=== PATIENT | female | born 1955 | race African-American/Black ===

== ENCOUNTER → 2016-10-13 | Outpatient (CLI) | payer OTHER, BC ==
[~2016-10-13] MED LIST: ACETAMINOPHEN325 MG PO; ASPIR 8181 MG PO; COLACE100 MG PO; COREG6.25 MG PO; FLEXERIL PO; MULTIVITAMINS1 EAC7 PO; PROAIR HFA8.5 GM INH; RENVELA800 MG PO; SENSIPAR 30 MG30 M1 PO; TESSALON PERLE100 MG PO; ULTRAM 50MG TAB50 MG PO; XANAX 0.25 MG0.25 MG PO; ZPAK PO
--- NOTE | ~2016-10-13 | 2DMMODE ---
[facility] [place] [employer] [place] [address] 2 D/M-MODE ECHOCARDIOGRAM Name: SHARMIN FRIEDMANN Room #: REG [facility]#: [id number] Admission: 10/13/16 Attend Phys: Ziyad Harrell MD Discharge: Date of : 53 Date of Service: 10/13/16 1102 Report #: [id number] THIS REPORT FOR: //name// APPROVED REPORT Study performed: 10/13/2016 09:49:59 EXAM: Comprehensive 2D, Doppler, and color-flow Echocardiogram Patient Location: Out-Patient Status: routine Other Information Study Quality: Adequate Indications Cardiomyopathy 2D Dimensions RVDd: 34.74 mm LVEF(%): 34.61 (>50%) IVSd: 15.29 (7-11mm) LVOT Diam: 21.66 (18-24mm) LVDd: 42.59 mm PWd: 15.27 (7-11mm) Ascending Ao: 31.83 (22-36mm) LVDs: 35.63 (25-40mm) Aortic Root: 33.27 mm Tompkins's LVEF: 34.61 % Volumes Left Atrial Volume (Systole) Single Plane 4CH: 42.66 mL Single Plane 2CH: 48.84 mL LA ESV Index: 23.00 mL/m2 Aortic Valve AoV Peak Aditya.: 1.40 m/s AO Peak Gr.: 7.82 mmHg LVOT Max P.31 mmHg LVOT Max V: 0.91 m/s CIERA Vmax: 2.40 cm2 Mitral Valve E/A Ratio: 0.3 MV Decel. Time: 232.54 ms MV E Max Aditya.: 0.33 m/s MV A Aditya.: 1.24 m/s MV PHT: 67.44 ms [facility] [address] [place] [address] 2 D/M-MODE ECHOCARDIOGRAM Name: FLIP FRIEDMANLYN Room #: REG [facility]#: [id number] Admission: 10/13/16 Attend Phys: Ziyad Harrell MD Discharge: Date of : 53 Date of Service: 10/13/16 1102 Report #: [id number] Pulmonary Valve PV Peak Aditya.: 0.95 m/s PV Peak Gr.: 3.62 mmHg Pulmonary Vein P Vein S: 0.80 m/s P Vein D: 0.61 m/s P Vein S/D Ratio: 1.31 Tricuspid Valve TR Peak Aditya.: 2.85 m/s RAP Estimate: 5.00 mmHg TR Peak Gr.: 32.40 mmHg PA Pressure: 37.00 mmHg Left Ventricle The left ventricle is normal size. Moderate concentric left ventricular hypertrophy. Left ventricular systolic function is mild to moderately decreased. LVEF is 40-45%. Grade I - abnormal relaxation pattern. Right Ventricle The right ventricle is normal size. The right ventricular systolic function is normal. Atria The left atrium size is normal. The atrial septum is hyperdynamic. The right atrium size is normal. Aortic Valve Aortic valve is mildly calcified. No aortic regurgitation is present. There is no aortic valvular stenosis. Mitral Valve The mitral valve is normal in structure. Mild to moderate mitral regurgitation. Tricuspid Valve The tricuspid valve is normal in structure. There is mild tricuspid regurgitation. The right atrial pressure is estimated at 5 mmHg. There is mild pulmonary hypertension with an estimated PAP of 37mmHg. Pulmonic Valve The pulmonary valve is normal in structure. Trace pulmonic regurgitation. Great Vessels [facility] [address] [place] [address] 2 D/M-MODE ECHOCARDIOGRAM Name: MYRNA FRIEDMAN Room #: REG [facility]#: [id number] Admission: 10/13/16 Attend Phys: Ziyad Harrell MD Discharge: Date of : 53 Date of Service: 10/13/16 1102 Report #: [id number] The aortic root is normal in size. The ascending aorta is normal in size. IVC is normal in size and collapses >50% with inspiration. Pericardium There is no pericardial effusion. <Conclusion> The left ventricle is normal size. Moderate concentric left ventricular hypertrophy. Left ventricular systolic function is mild to moderately decreased. Grade I - abnormal relaxation pattern. The right ventricle is normal size. The left atrium size is normal. Aortic valve is mildly calcified. There is no aortic valvular stenosis. Mild to moderate mitral regurgitation. There is mild tricuspid regurgitation. The right atrial pressure is estimated at 5 mmHg. There is mild pulmonary hypertension with an estimated PAP of 37mmHg. <ELECTRONICALLY SIGNED> By: Ziyad Harrell MD 10/13/16 1102 1102 1102 Ziyad Harrell MD /INF
== END ==
LOC: CV 07:00
DX: I42.9 Cardiomyopathy, unspecified (principal)

== ENCOUNTER → 2018-02-01 | Outpatient (CLI) | payer OTHER, BC ==
--- NOTE | ~2018-02-01 | 2DMMODE ---
[facility] [place] [address] 2 D/M-MODE ECHOCARDIOGRAM Name: MYRNA FRIEDMAN Room #: REG CL [facility]#: [id number] Admission: 02/01/18 Attend Phys: Ziyad Harrell MD Discharge: Date of : 53 Date of Service: 02/01/18 1002 Report #: [id number] THIS REPORT FOR: //name// APPROVED REPORT Study performed: 02/01/2018 08:48:01 EXAM: Comprehensive 2D, Doppler, and color-flow Echocardiogram Patient Location: Out-Patient Status: routine BSA: 2.01 HR: 77 bpm BP: 107/63 mmHg Rhythm: NSR/Irregular Other Information Study Quality: Good Indications Non ischemic cardiomyopathy. Hx: HTN, DM, ESRD 2D Dimensions RVDd: 34.85 mm IVSd: 12.48 (7-11mm) LVOT Diam: 22.18 (18-24mm) LVDd: 52.93 mm PWd: 11.66 (7-11mm) Ascending Ao: 34.40 (22-36mm) LVDs: 43.32 (25-40mm) Aortic Root: 32.32 mm Volumes Left Atrial Volume (Systole) Single Plane 4CH: 73.36 mL Single Plane 2CH: 77.57 mL LA ESV Index: 40.00 mL/m2 Aortic Valve AoV Peak Aditya.: 1.38 m/s AO Peak Gr.: 7.58 mmHg LVOT Max P.25 mmHg LVOT Max V: 0.90 m/s CIERA Vmax: 2.53 cm2 Mitral Valve E/A Ratio: 0.8 MV Decel. Time: 240.29 ms MV E Max Aditya.: 0.62 m/s [facility] [address] [place] [address] 2 D/M-MODE ECHOCARDIOGRAM Name: IDALIAMYRNACHELY DANGELO Room #: REG [facility]#: [id number] Admission: 02/01/18 Attend Phys: Ziyad Harrell MD Discharge: Date of : 53 Date of Service: 02/01/18 1002 Report #: [id number] MV A Aditya.: 0.79 m/s MV PHT: 69.68 ms IVRT: 110.73 ms Pulmonary Valve PV Peak Aditya.: 1.15 m/s PV Peak Gr.: 5.32 mmHg Pulmonary Vein P Vein S: 0.64 m/s P Vein D: 0.45 m/s P Vein S/D Ratio: 1.42 Tricuspid Valve TR Peak Aditya.: 2.94 m/s RAP Estimate: 5.00 mmHg TR Peak Gr.: 34.46 mmHg PA Pressure: 40.00 mmHg Left Ventricle The left ventricle is normal size. Moderate concentric left ventricular hypertrophy. Left ventricular systolic function is mild to moderately decreased. LVEF is 40-45%. Mild diastolic dysfunction is present (impaired relaxation pattern). Right Ventricle The right ventricle is normal size. The right ventricular systolic function is normal. Atria Left atrium is mildly dilated. The right atrium size is normal. Aortic Valve Aortic valve is mildly calcified. Trace aortic regurgitation. There is no aortic valvular stenosis. Mitral Valve The mitral valve is normal in structure. Moderate mitral regurgitation. Tricuspid Valve The tricuspid valve is normal in structure. Mild tricuspid regurgitation. Estimated PAP is 40mmHg. Pulmonic Valve The pulmonary valve is normal in structure. Trace pulmonic regurgitation. [facility] [address] [address] 2 D/M-MODE ECHOCARDIOGRAM Name: IDALIAMYRNACHELY DANGELO Room #: REG CL [facility]#: [id number] Admission: 02/01/18 Attend Phys: Ziyad Harrell MD Discharge: Date of : 53 Date of Service: 02/01/18 1002 Report #: [id number] Great Vessels The aortic root is normal in size. The ascending aorta is normal in size. IVC is normal in size and collapses >50% with inspiration. Pericardium There is no pericardial effusion. <Conclusion> The left ventricle is normal size. Moderate concentric left ventricular hypertrophy. Left ventricular systolic function is mild to moderately decreased. LVEF is 40-45%. Mild diastolic dysfunction is present (impaired relaxation pattern). The right ventricle is normal size. Left atrium is mildly dilated. Trace aortic regurgitation. Moderate mitral regurgitation. Mild tricuspid regurgitation. Estimated PAP is 40mmHg. <ELECTRONICALLY SIGNED> By: Ziyad Harrell MD 02/01/18 1002 1002 1002 Ziyad Harrell MD /INF
== END ==
LOC: CV 08:11
DX: I08.1 Rheumatic disorders of both mitral and tricuspid valves (principal); I42.9 Cardiomyopathy, unspecified; I12.0 Hypertensive chronic kidney disease with stage 5 chronic kidney disease or end stage renal disease; E11.22 Type 2 diabetes mellitus with diabetic chronic kidney disease; N18.6 End stage renal disease

== ENCOUNTER 2018-12-21 13:54 | Inpatient (IN) | payer OTHER, BC ==
[~2018-12-21] VITALS: Ht 162.6 cm; Wt 81.7 kg
[2018-12-21 13:58] VITALS: BP 151/78
[2018-12-21] MEDS ORDERED: HYDRALAZINE 2525 MG PO (14:38)
[2018-12-21] MEDS ORDERED: MELATONIN5 M1 PO (14:38)
[2018-12-21] MEDS ORDERED: ALEVE220 MG PO (14:38)
[2018-12-21] MEDS ORDERED: B COMPLEX-FOLI1 EACH PO (14:40)
[2018-12-21 15:03] LABS: ABSOLUTE NEUTROPHILS 4.6 thou/uL (1.4-8.2); BASOPHILS 0.6 % (0.0-2.0); EOSINOPHILS 1.8 % (0.0-3.0); HEMATOCRIT 35.7 % (37.0-47.0); HEMOGLOBIN 11.6 gm/dL (12.0-15.0); LYMPHOCYTES 13.2 % (24.0-44.0); MCH 29.2 pg (26.0-34.0); MCHC 32.5 g/dL (28.0-37.0); MCV 89.9 fL (80.0-100.0); MONOCYTES 9.2 % (1.0-8.0); POLYS 75.2 % (36.0-66.0); RBC 3.97 mil/uL (4.20-5.00); RDW 17.3 % (10.5-14.5); WBC 6.2 thou/uL (4.0-11.0)
[2018-12-21 15:18] LABS: APTT 32.7 Seconds (24.5-32.8); CALCIUM 9.2 mg/dL (8.5-10.1); CREATININE 4.4 mg/dL (0.6-1.0); INR 1.1; POTASSIUM 3.7 mmol/L (3.5-5.1); PROTIME 11.5 Seconds (9.3-11.4)
[2018-12-21 15:24] LABS: ALBUMIN 3.4 g/dL (3.4-5.0); TOTAL BILIRUBIN 0.9 mg/dL (<0.1-1.0); TOTAL PROTEIN 7.9 g/dL (6.4-8.2)
[2018-12-21 15:27] LABS: ANISOCYTOSIS 1+; PLATELET COUNT 161 thou/uL (150-400)
[2018-12-21 17:22] VITALS: BP 131/74
--- NOTE | 2018-12-22 10:37 | EKG ---
[place] [address] 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[facility] : 1955 Requested By: Delia Castro Order Number: [id number] MD: Pepe Sanon Measurements Intervals [place] Rate: 72 P: 74 DC: 197 QRS: -19 QRSD: 120 T: 107 QT: 474 QTc: 519 Interpretive Statements Sinus rhythm Occasional premature ventricular complexes Left anterior hemiblock Borderline T abnormalities, lateral leads Compared to ECG 03/17/2015 18:04:43 no significant change was found Electronically Signed On 12-22-2018 10:37:38 CDT by Pepe Sanon [email or web address] <ELECTRONICALLY SIGNED> By: Pepe Sanon MD, [facility] 12/22/18 1037 1431 1431 Pepe Sanon MD, [facility] /EPI
== END 2018-12-21 17:22 | disposition home or self-care (01) | DRG 204 ==
LOC: ER 13:54 → EROBS 16:37
PROVIDERS: Physician Assistant; ADMIT Hospitalist
DX: R06.00 Dyspnea, unspecified (principal); N18.6 End stage renal disease; I42.8 Other cardiomyopathies; I12.0 Hypertensive chronic kidney disease with stage 5 chronic kidney disease or end stage renal disease; F41.9 Anxiety disorder, unspecified; E11.22 Type 2 diabetes mellitus with diabetic chronic kidney disease; I34.0 Nonrheumatic mitral (valve) insufficiency; D63.1 Anemia in chronic kidney disease; Z99.2 Dependence on renal dialysis; Z90.49 Acquired absence of other specified parts of digestive tract

== ENCOUNTER → 2019-03-07 | Outpatient (CLI) | payer OTHER, BC ==
[~2019-03-07] MED LIST changes: +ALEVE220 MG PO; +B COMPLEX-FOLI1 EACH PO; +HYDRALAZINE 2525 MG PO; +MELATONIN5 M1 PO
--- NOTE | 2019-03-07 13:47 | 2DMMODE ---
[facility] [place] [address] 2 D/M-MODE ECHOCARDIOGRAM Name: MYRNA FRIEDMAN Room #: REG [facility]#: [id number] Admission: 03/07/19 Attend Phys: Ziyad Harrell MD Discharge: Date of : 53 Report #: [id number] THIS REPORT FOR: //name// APPROVED REPORT Study performed: 03/07/2019 12:23:00 EXAM: Comprehensive 2D, Doppler, and color-flow Echocardiogram Patient Location: Echo lab, Outpatient Status: routine BSA: 1.78 HR: 72 bpm BP: 122/72 mmHg Rhythm: NSR with PVC's Other Information Study Quality: Good Risk Factors: Cardiac Risk Factors: HTN, DM, ESRD Indications Non-Ischemic Cardiomyopathy 2D Dimensions IVSd: 12.39 (7-11mm) LVOT Diam: 22.00 (18-24mm) LVDd: 57.66 mm PWd: 12.58 (7-11mm) Ascending Ao: 32.49 (22-36mm) LVDs: 49.52 (25-40mm) Aortic Root: 30.30 mm LV Single Plane 4CH: 33.95 % LV Single Plane 2CH: 32.67 % Biplane EF: 32.4 % Volumes Left Atrial Volume (Systole) Single Plane 4CH: 144.05 mL Single Plane 2CH: 163.58 mL LA ESV Index: 96.00 mL/m2 Aortic Valve AoV Peak Aditya.: 1.43 m/s AO Peak Gr.: 8.23 mmHg LVOT Max P.05 mmHg LVOT Max V: 0.72 m/s CIERA Vmax: 2.03 cm2 [facility] [address] [place] [address] 2 D/M-MODE ECHOCARDIOGRAM Name: IDALIAMYRNACHELY DANGELO Room #: REG [facility]#: [id number] Admission: 03/07/19 Attend Phys: Ziyad Harrell MD Discharge: Date of : 53 Report #: [id number] Mitral Valve E/A Ratio: 3.5 MV Decel. Time: 202.38 ms MV E Max Aditya.: 1.42 m/s MV A Aditya.: 0.41 m/s MV PHT: 58.69 ms IVRT: 72.66 ms TDI E/Lateral E': 20.29 E/Medial E': 35.50 Medial E' Aditya.: 0.04 m/s Lateral E' Aditya.: 0.07 m/s Pulmonary Valve PV Peak Aditya.: 0.93 m/s PV Peak Gr.: 3.45 mmHg TN End Vmax: 1.19 m/s Pulmonary Vein P Vein S: 0.80 m/s P Vein A: 0.15 m/s P Vein D: 0.29 m/s P Vein A Dur.: 55.4 msec P Vein S/D Ratio: 2.76 Tricuspid Valve TR Peak Aditya.: 4.12 m/s RAP Estimate: 7.00 mmHg TR Peak Gr.: 68.03 mmHg PA Pressure: 75.00 mmHg Left Ventricle Left ventricle is borderline dilated. Mild concentric left ventricular hypertrophy. Left ventricular systolic function is moderate to severely decreased. LVEF is 35%. Grade II - pseudonormal filling dynamics. Right Ventricle The right ventricle is normal size. The right ventricular systolic function is normal. Atria Left atrium is severely dilated. Right atrium is dilated. Aortic Valve Aortic valve is mildly calcified. Trace aortic regurgitation. There is no aortic valvular stenosis. Mitral Valve [facility] [address] [place] [address] 2 D/M-MODE ECHOCARDIOGRAM Name: SHARMIN FRIEDMANPradeep DANGELO Room #: REG CL [facility]#: [id number] Admission: 03/07/19 Attend Phys: Ziyad Harrell MD Discharge: Date of : 53 Report #: [id number] The mitral valve is normal in structure. Severe mitral regurgitation. No evidence of mitral valve stenosis. Tricuspid Valve The tricuspid valve is normal in structure. Moderate tricuspid regurgitation. Pulmonary artery pressure is 75 mmHg. Severe pulmonary hypertension. Pulmonic Valve The pulmonary valve is normal in structure. Mild pulmonic regurgitation. Great Vessels The aortic root is normal in size. The ascending aorta is normal in size. IVC is normal in size and collapses >50% with inspiration. Pericardium There is no pericardial effusion. <Conclusion> Left ventricle is borderline dilated. Left ventricular systolic function is moderate to severely decreased. Grade II - pseudonormal filling dynamics. The right ventricle is normal size. Left atrium is severely dilated. Trace aortic regurgitation. Severe mitral regurgitation. Moderate tricuspid regurgitation. Pulmonary artery pressure is 75 mmHg. Severe pulmonary hypertension. <ELECTRONICALLY SIGNED> By: Ziyad Harrell MD 03/07/191346 46 46 Ziyad Harrell MD /INF
== END ==
LOC: CV 12:06
DX: I08.8 Other rheumatic multiple valve diseases (principal); I27.20 Pulmonary hypertension, unspecified

== ENCOUNTER → 2019-09-05 | Outpatient (CLI) | payer OTHER, BC | LOC: SJCVC 10:20 | DX: I42.8 Other cardiomyopathies (principal); E78.2 Mixed hyperlipidemia; I25.10 Atherosclerotic heart disease of native coronary artery without angina pectoris ==

== ENCOUNTER → 2020-03-05 | Outpatient (CLI) | payer OTHER, BC | LOC: SJCVCIMAG 07:34 | PROVIDERS: ATTEND Internal Medicine Cardiovascular Disease | DX: I42.9 Cardiomyopathy, unspecified (principal); I49.3 Ventricular premature depolarization; E78.2 Mixed hyperlipidemia; I25.10 Atherosclerotic heart disease of native coronary artery without angina pectoris; I12.0 Hypertensive chronic kidney disease with stage 5 chronic kidney disease or end stage renal disease; N18.6 End stage renal disease; I34.0 Nonrheumatic mitral (valve) insufficiency; I95.9 Hypotension, unspecified; Z99.2 Dependence on renal dialysis; Z79.899 Other long term (current) drug therapy ==

== ENCOUNTER → 2020-08-25 | Outpatient (CLI) | payer OTHER, BC | LOC: SJCVCIMAG 08:34 | PROVIDERS: ATTEND Internal Medicine Cardiovascular Disease | DX: R94.31 Abnormal electrocardiogram [ECG] [EKG] (principal); I49.3 Ventricular premature depolarization; R00.1 Bradycardia, unspecified; I49.9 Cardiac arrhythmia, unspecified; I42.9 Cardiomyopathy, unspecified; I25.10 Atherosclerotic heart disease of native coronary artery without angina pectoris; E78.00 Pure hypercholesterolemia, unspecified; I95.9 Hypotension, unspecified; E11.22 Type 2 diabetes mellitus with diabetic chronic kidney disease; I12.0 Hypertensive chronic kidney disease with stage 5 chronic kidney disease or end stage renal disease; N18.6 End stage renal disease; I34.0 Nonrheumatic mitral (valve) insufficiency; I25.5 Ischemic cardiomyopathy; Z99.2 Dependence on renal dialysis; Z79.82 Long term (current) use of aspirin; Z79.899 Other long term (current) drug therapy ==

== ENCOUNTER 2020-10-26 07:15 | Emergency (ER) | payer OTHER, BC ==
[~2020-10-26] VITALS: Ht 160 cm; Wt 69.4 kg
[2020-10-26 07:48] LABS: ABSOLUTE NEUTROPHILS 7.6 thou/uL (1.4-8.2); BASOPHILS 0.9 % (0.0-2.0); EOSINOPHILS 1.1 % (0.0-3.0); HEMATOCRIT 38.7 % (37.0-47.0); HEMOGLOBIN 12.6 gm/dL (12.0-15.0); LYMPHOCYTES 8.4 % (24.0-44.0); MCH 29.9 pg (26.0-34.0); MCHC 32.5 g/dL (28.0-37.0); MONOCYTES 6.9 % (1.0-8.0); PLATELET COUNT 154 thou/uL (150-400); POLYS 82.7 % (36.0-66.0); RBC 4.21 mil/uL (4.20-5.00); RDW 15.1 % (10.5-14.5); WBC 9.2 thou/uL (4.0-11.0)
[2020-10-26 07:54] LABS: CALCIUM 9.5 mg/dL (8.5-10.1); CREATININE 8.2 mg/dL (0.6-1.0); POTASSIUM 5.1 mmol/L (3.5-5.1)
[2020-10-26 08:00] LABS: TOTAL BILIRUBIN 0.6 mg/dL (0.2-1.0); TOTAL PROTEIN 7.9 g/dL (6.4-8.2)
[2020-10-26] MEDS ORDERED: ZOFRAN ODT4 MG PO (09:30)
[2020-10-26 09:38] VITALS: BP 124/91
== END 2020-10-26 09:38 | disposition home or self-care (01) ==
LOC: ER 07:15
PROVIDERS: Emergency Medicine
DX: K52.9 Noninfective gastroenteritis and colitis, unspecified (principal); E11.22 Type 2 diabetes mellitus with diabetic chronic kidney disease; I12.0 Hypertensive chronic kidney disease with stage 5 chronic kidney disease or end stage renal disease; N18.6 End stage renal disease; Z99.2 Dependence on renal dialysis; Z98.51 Tubal ligation status; Z90.89 Acquired absence of other organs

== ENCOUNTER 2020-11-15 12:20 | Emergency (ER) | payer OTHER, BC ==
[~2020-11-15] VITALS: Ht 160 cm; Wt 68.0 kg
[~2020-11-15 12:20] MED LIST changes: +ZOFRAN ODT4 MG PO
[2020-11-15 12:29] VITALS: BP 103/67
[2020-11-15] MEDS ORDERED: XANAX 0.5 MG0.5 MG PO (12:48)
== END 2020-11-15 13:07 | disposition home or self-care (01) ==
LOC: ER 12:20
DX: F41.9 Anxiety disorder, unspecified (principal); E11.22 Type 2 diabetes mellitus with diabetic chronic kidney disease; I12.0 Hypertensive chronic kidney disease with stage 5 chronic kidney disease or end stage renal disease; N18.6 End stage renal disease; Z99.2 Dependence on renal dialysis; Z98.51 Tubal ligation status; Z90.49 Acquired absence of other specified parts of digestive tract

== ENCOUNTER 2020-11-19 15:13 | Emergency (ER) | payer OTHER, BC ==
[~2020-11-19] VITALS: Ht 160 cm; Wt 68.0 kg
[~2020-11-19 15:13] MED LIST changes: +XANAX 0.5 MG0.5 MG PO
[2020-11-19] MEDS ORDERED: XANAX XR1 MG PO (17:20)
[2020-11-19 17:30] VITALS: BP 124/79
== END 2020-11-19 17:30 | disposition home or self-care (01) ==
LOC: ER 15:13
DX: F41.9 Anxiety disorder, unspecified (principal); E11.22 Type 2 diabetes mellitus with diabetic chronic kidney disease; I12.0 Hypertensive chronic kidney disease with stage 5 chronic kidney disease or end stage renal disease; N18.6 End stage renal disease; Z99.2 Dependence on renal dialysis; Z98.51 Tubal ligation status; Z90.89 Acquired absence of other organs

== ENCOUNTER 2020-12-16 15:01 | Inpatient (IN) | payer OTHER, BC ==
[~2020-12-16] VITALS: Ht 160 cm; Wt 77.7 kg
[~2020-12-16 15:01] MED LIST changes: +XANAX XR1 MG PO
[2020-12-16 15:42] VITALS: BP 107/77
[2020-12-16 17:26] LABS: ABSOLUTE NEUTROPHILS 5.3 thou/uL (1.4-8.2); EOSINOPHILS 0.9 % (0.0-3.0); HEMATOCRIT 39.8 % (37.0-47.0); HEMOGLOBIN 12.9 gm/dL (12.0-15.0); LYMPHOCYTES 12.6 % (24.0-44.0); MCHC 32.4 g/dL (28.0-37.0); MCV 92.6 fL (80.0-100.0); MONOCYTES 6.1 % (1.0-8.0); PLATELET COUNT 182 thou/uL (150-400); POLYS 79.4 % (36.0-66.0); WBC 6.7 thou/uL (4.0-11.0)
[2020-12-16 17:38] LABS: CALCIUM 8.5 mg/dL (8.5-10.1); CREATININE 4.1 mg/dL (0.6-1.0); POTASSIUM 3.5 mmol/L (3.5-5.1)
[2020-12-16 17:49] LABS: ALBUMIN 3.4 g/dL (3.4-5.0); MAGNESIUM 2.2 mg/dL (1.8-2.4); TOTAL PROTEIN 8.4 g/dL (6.4-8.2); TROPONIN-I 0.09 ng/mL (<0.06)
[2020-12-17] VITALS (7 sets, daily range): BP systolic 91–104; BP diastolic 40–76
[2020-12-17 06:05] LABS: HEMOGLOBIN 12.6 gm/dL (12.0-15.0); MCH 29.9 pg (26.0-34.0); MCHC 32.1 g/dL (28.0-37.0); MCV 93.1 fL (80.0-100.0); RBC 4.19 mil/uL (4.20-5.00); RDW 19.3 % (10.5-14.5); WBC 6.2 thou/uL (4.0-11.0)
[2020-12-17 06:47] LABS: ALBUMIN 2.9 g/dL (3.4-5.0); CALCIUM 8.1 mg/dL (8.5-10.1); CREATININE 4.7 mg/dL (0.6-1.0); POTASSIUM 4.2 mmol/L (3.5-5.1); TOTAL BILIRUBIN 0.7 mg/dL (0.2-1.0); TOTAL PROTEIN 6.6 g/dL (6.4-8.2)
--- NOTE | 2020-12-17 08:11 | NUR ---
0445 ADMITTED TO FLOOR PER CART. NO SKIN WOUNDS NOTED. ADMISSION PROCESS STARTED AND COMPLETED. WORKING ON GOALS AND PLAN OF CARE. ORIENTED TO ROOM AND FLOOR POLICIES. DENIES COMPLAINTS OF PAIN. CONTINUE TO ASSES.
--- NOTE | 2020-12-17 12:48 | 2DMMODE ---
[facility] [place] [address] 2 D/M-MODE ECHOCARDIOGRAM Name: MYRNA FRIEDMAN Room #: 215-P ADM IN M.R.#: [id number] Admission: 12/16/20 Attend Phys: Brandon Busch MD Discharge: Date of : 53 Report #: [id number] THIS REPORT FOR: cc: Ángel Garduno Andrea RNP Park, Jin S. MD ~ APPROVED REPORT Study performed: 12/17/2020 10:45:52 EXAM: Comprehensive 2D, Doppler, and color-flow Echocardiogram Patient Location: Bedside Room #: [facility] Status: routine BSA: 1.71 HR: 100 bpm BP: 92/56 mmHg Rhythm: Atrial Fibrillation Other Information Study Quality: Excellent Indications Afib with RVR. Hx: Cardiomyopathy, mild CAD, ESRD, HTN, DM. 2D Dimensions RVDd: 42.00 mm IVSd: 13.00 (7-11mm) LVOT Diam: 20.00 (18-24mm) LVDd: 60.00 mm PWd: 11.09 (7-11mm) Ascending Ao: 34.00 (22-36mm) LVDs: 53.00 (25-40mm) Left Atrium: 50.00 (27-40mm) Aortic Root: 32.00 mm Volumes Left Atrial Volume (Systole) Single Plane 4CH: 167.13 mL Single Plane 2CH: 212.37 mL LA ESV Index: 118.00 mL/m2 Aortic Valve AoV Peak Aditya.: 1.14 m/s AO Peak Gr.: 5.32 mmHg LVOT Max P.58 mmHg LVOT Max V: 0.62 m/s [facility] [address] [place] [address] 2 D/M-MODE ECHOCARDIOGRAM Name: MYRNA FRIEDMAN Room #: 215-P ADM IN [facility].#: [id number] Admission: 12/16/20 Attend Phys: Brandon Busch MD Discharge: Date of : 53 Report #: [id number] CIERA Vmax: 1.70 cm2 Pulmonary Valve PV Peak Aditya.: 0.67 m/s PV Peak Gr.: 1.80 mmHg Tricuspid Valve TR Peak Aditya.: 4.31 m/s RAP Estimate: 15.00 mmHg TR Peak Gr.: 75.17 mmHg PA Pressure: 90.00 mmHg Left Ventricle Left ventricle is mildly dilated. Mild concentric left ventricular hypertrophy. Left ventricular systolic function is moderate to severely decreased. LVEF is 30-35%. This study is not technically sufficient to allow evaluation of the LV diastolic function due to atrial fibrillation. Right Ventricle Right ventricle is borderline dilated. Right ventricle is mildly hypokinetic. Atria Left atrium is severely dilated. Right atrium is moderately dilated. Aortic Valve Aortic valve is moderately calcified. Trace aortic regurgitation. There is no aortic valvular stenosis. Mitral Valve The mitral valve is normal in structure. Severe mitral regurgitation. Tricuspid Valve The tricuspid valve is normal in structure. Moderate to severe tricuspid regurgitation. Severe pulmonary hypertension. Estimated PAP is 85 mmHg. Pulmonic Valve The pulmonary valve is normal in structure. Trace pulmonic regurgitation. Great Vessels The aortic root is normal in size. The ascending aorta is normal in size. IVC is dilated and collapses <50% with inspiration. [facility] [address] [place] [address] 2 D/M-MODE ECHOCARDIOGRAM Name: MYRNA FRIEDMAN Room #: 215-[facility] IN ..#: [id number] Admission: 12/16/20 Attend Phys: Brandon Busch MD Discharge: Date of : 53 Report #: [id number] Pericardium Small pericardial effusion. <Conclusion> Left ventricle is mildly dilated. Left ventricular systolic function is moderate to severely decreased. Right ventricle is borderline dilated. Left atrium is severely dilated. Aortic valve is moderately calcified. Severe mitral regurgitation. Moderate to severe tricuspid regurgitation. Severe pulmonary hypertension. Estimated PAP is 85 mmHg. <ELECTRONICALLY SIGNED> By: Ziyad Harrell MD 12/17/20 1248 1248 [id number] Ziyad Harrell MD /INF
--- NOTE | 2020-12-17 21:56 | NUR ---
PT IS AXOX4, PLEASANT. VS BP SOFT, AFEBRILE, AFIB WITH PVC ON MONITOR. PT HAS WEAKNESS, UP X1 TO TRANSFER. PT EXPERIENCED ANXIETY ATTACK, RX XANAX PROVIDED. PT STATED SHE FELT LESS ANXIOUS. PT HAS DIALYSIS M/W/F, L WRIST FISTULA. DR HARTLEY CONSULTED. PT TO CONTINUE ABX THERAPY. DR PANIAGUA CONSULTED FOR PULMONARY ARTERIAL HYPERTENSION. DR BURTON CONSULTED FOR RENAL AND CONTINUING PT DIALYSIS. FALL PRECAUTIONS IN PLACE. FREQUENT ROUNDING.
[2020-12-18 00:15] VITALS: BP 86/56
[2020-12-18 04:07] LABS: GLYCOHEMOGLOBIN (HGB A1C) 5.1 % (4.8-5.6)
[2020-12-18 04:45] VITALS: BP 92/66
--- NOTE | 2020-12-18 08:04 | NUR ---
SLEPT UP IN CHAIR MOST OF SHIFT. COMPLAINTS OF CONSTIPATION LAST NOC. ASSISTED TO COMODE MULTIPLE TIMES, HAD MODERATE HARD STOOL THEN 3 SMALL LOOSE/SOFT STOOLS. ENCOURAGED FLUIDS. ORIENTED BUT FORGETFUL AT TIMES. MOANS BUT DENIES COMPLAINTS OF PAIN. CONTINUE TO ASSES.
[2020-12-18 08:15] VITALS: BP 102/89
--- NOTE | 2020-12-18 09:18 | EKG ---
[place] [address] [facility] [facility] [place] [address] ELECTROCARDIOGRAM REPORT Name: MYRNA FRIEDMAN Room #: 215-P ADM IN M.R.#: [id number] Admission: 12/16/20 Attend Phys: Brandon Busch MD Discharge: Date of : 53 Report #: [id number] [facility] ED Test Date: 2020-12-16 Test Time: 16:58:46 Pat Name: MYRNA FRIEDMAN Department: Room: 215 Gender: F [employer]: : 1955 Requested By: Jason De Leon Order Number: [id number] MD: Pepe Sanon Measurements Intervals [place] Rate: 109 P: SC: QRS: -25 QRSD: 120 T: 137 QT: 400 QTc: 539 Interpretive Statements Atrial fibrillation Paired ventricular premature complexes Poor R wave progression Nonspecific T wave abnormality Prolonged QT interval Compared to ECG 12/21/2018 14:31:04 Atrial fibrillation has replaced sinus rhythm Nonspecific change in the T wave abnormality Electronically Signed On 12-18-2020 9:18:45 CDT by Pepe Sanon [email or web address] <ELECTRONICALLY SIGNED> By: Pepe Sanon MD, [facility] 12/18/20 0918 1658 1658 Pepe Sanon MD, [facility] /EPI
--- NOTE | 2020-12-18 09:26 | NUR ---
cm completed initial assessment with pt. pt was tired and dozing. pt was receiving dialysis. pt receives outpatient dialysis with [facility] on at 10 am. pt indicated she lives with son. pt indicated she is independent with adls and drives pt denies hx with hh or snf. cm to cont to follow to assist with dc plan. flow sheets and orders to be faxed to [facility] at dc.
[2020-12-18 11:25] VITALS: BP 94/69
--- NOTE | 2020-12-18 15:05 | NUR ---
PT RESTING COMFORTABLY. DIALYSIS COMPLETED TODAY AT BEDSIDE, FROM [id number]. PT AFIB ON TELE. PT NOW ON 3L NC. PT AFEBRILE, ANEURIC, NO BM, POOR APPETITE. PT AND FAMILY HAVE BEEN THOUROUGHLY UPDATED AND EDUCATED ON PT CONDITION AND POC. PT SLOWLY PROGRESSING TOWARDS POC.
[2020-12-18 15:30] VITALS: BP 83/61
[2020-12-18 20:50] VITALS: BP 91/55
[2020-12-18 23:32] LABS: ABSOLUTE NEUTROPHILS 6.4 thou/uL (1.4-8.2); BASOPHILS 1.8 % (0.0-2.0); EOSINOPHILS 1.1 % (0.0-3.0); HEMATOCRIT 34.1 % (37.0-47.0); LYMPHOCYTES 10.7 % (24.0-44.0); MCH 29.9 pg (26.0-34.0); MCHC 32.3 g/dL (28.0-37.0); MCV 92.7 fL (80.0-100.0); MONOCYTES 7.9 % (1.0-8.0); PLATELET COUNT 133 thou/uL (150-400); POLYS 78.5 % (36.0-66.0); RBC 3.67 mil/uL (4.20-5.00); RDW 19.4 % (10.5-14.5); WBC 8.2 thou/uL (4.0-11.0)
[2020-12-19 04:45] VITALS: BP 98/60
--- NOTE | 2020-12-19 06:14 | NUR ---
SLEPT PART OF SHIFT. REMAINS ORIENTED X4 BUT FORGETFUL AT TIMES. ASSIST UP TO COMODE LAST NOC BUT NO BM, PATIENT ANURIC. DENIES COMPLAINTS OF PAIN OR SHORTNESS OF AIR. STATES JUST TIRED. WORKING ON GOALS AND PLAN OF CARE FOR NOC. CONTINUE TO ASSES.
[2020-12-19 07:30] VITALS: BP 84/64
[2020-12-19 12:20] VITALS: BP 86/63
[2020-12-19 16:00] VITALS: BP 109/70
[2020-12-19 20:15] VITALS: BP 103/56; BP 84/56
--- NOTE | 2020-12-19 20:18 | NUR ---
PT IS AXOX4, PLEASANT. VS SBP 80s, AFEBRILE, AFIB WITH PVCs ON MONITOR. PT ON ABX THERAPY. PT HAS L W/FA FISTULA, AND IS M/W/F DIALYSIS PT. PT HAS 1+ EDEMA ON BLE. DENIES PAIN BUT HAS ANXIETY, PRN XANAX. DR BLISS CONSULTED. PHYS THERAPY CONSULTED. POC IS TO CONTINUE TO PROMOTE ACTIVITY TOLERATED THE PT HAS GENERALIZED WEAKNESS; ABX THERAPY. FALL PRECAUTIONS IN PLACE. FREQUENT ROUNDING.
[2020-12-20 04:09] VITALS: BP 95/57
[2020-12-20 08:05] VITALS: BP 84/42
[2020-12-20 12:00] VITALS: BP 96/48
[2020-12-20 16:10] VITALS: BP 105/75
--- NOTE | 2020-12-20 16:52 | NUR ---
Assumed care of pt this AM. Pt is A&O x4, forgetful. 3L NC PRN for anxiety. A-fib on the monitor, denies any chest pain. Pts BP low this AM, held Amiodarone. Up with 1 assist to bathroom. Pt scheduled to have dialysis tomorrow, lt wrist fistula + for thrill & bruit. Pt denies any other needs at this time. Will continue to monitor.
[2020-12-20 20:15] VITALS: BP 101/58
[2020-12-21 04:22] VITALS: BP 82/68
--- NOTE | 2020-12-21 04:24 | NUR ---
SLEPT PART OF SHIFT. ASSIST UP TO COMODE NEEDED. PATIENT GOT OUT OF BED WITHOUT ASSISTANCE AND SET OFF BED ALARM AT 0030 AND PULLED IV OUT. ASSISTED BACK TO BED. WORKING ON GOALS AND PLAN OF CARE FOR NOC. PROGRESSING TOWARDS DISCHARGE GOALS SLOWLY. CONTINUE TO ASSES CLOSELY.
[2020-12-21 06:52] VITALS: BP 84/60
[2020-12-21 07:55] VITALS: BP 84/64
--- NOTE | 2020-12-21 09:18 | NUR ---
Assumed care of pt this am. Pt is A&O x4, sometimes forgetful. 2L NC PRN for anxiety. Amiodarone held d/t low BP. Blood sugars still low, but returns into normal range with food. IV infiltrated this shift & dc'ed. Continues on IV rocephin. Receiving dialysis today. Denies any other needs at this time. Will continue to monitor.
[2020-12-21 11:10] VITALS: BP 87/60
[2020-12-21 15:30] VITALS: BP 97/64
--- NOTE | 2020-12-21 17:24 | NUR ---
Spoke with patient regarding HH care. She has had in past. She cannot recall agency. She wants to think about having home health.
[2020-12-21 20:15] VITALS: BP 100/77
[2020-12-22] VITALS (7 sets, daily range): BP systolic 87–115; BP diastolic 53–76
--- NOTE | 2020-12-22 08:35 | NUR ---
SLEPT PART OF SHIFT. ASSIST UP TO BATHROOM WITH GAIT BELT AND WALKER NEEDED. PATIENT TAKES XANAX FOR ANXIETY ATTACKS. WORKING ON GOALS AND PLAN OF CARE FOR NOC. CONTINUE TO ASSES.
--- NOTE | 2020-12-22 16:04 | NUR ---
spoke with therapy patient would benefit from post acute care. Patient agreeable to need of rehab. 5N consult.
--- NOTE | 2020-12-22 16:12 | NUR ---
PATIENT STABLE THROUGH OUT THE DAY. WORKED WITH PHYISICAL THERAPY X2. SAT UP IN CHAIR. AFIB ON THE MONITOR, RATES CONTROLLED. NEGATIVE ORTHOSTATIC BLOOD PRESSURES. ORDERS FOR 5N CONSULT IN PLACE. PATIENT HAS DIALYSIS M.W.F. DENIES ANY NEEDS OR CONCERNS AT THIS TIME.
[2020-12-23 00:26] VITALS: BP 114/69
[2020-12-23 04:45] VITALS: BP 100/72
--- NOTE | 2020-12-23 07:35 | NUR ---
NO SIGNIFICANT EVENTS OVER THE NIGHT. PT DID HAVE PERIODS OF RESTLESSNESS AND ANXIETY. PRN ALPRAZOLAM GIVEN FOR ANXIETY. PT DOES GET SOME SOA W/ ANXIETY EPISODES. SPO2 STABLE ON RA. SBP 90S-110S. AFEBRILE. FALL PRECAUTIONS IN PLACE. PROGRESSING SLOWLY TOWARD POC GOALS. REPORT GIVEN TO DAY SHIFT RN.
[2020-12-23 07:45] VITALS: BP 119/79
[2020-12-23] MEDS ORDERED: PACERONE 200 M200 M1 PO (11:09)
[2020-12-23] MEDS ORDERED: IPRAT-ALBUT 0.5-3 ML INH (11:09)
[2020-12-23] MEDS ORDERED: MIDODRINE HCL 55 M1 PO (11:09)
[2020-12-23] MEDS ORDERED: ELIQUIS5 MG PO (11:09)
[2020-12-23] MEDS ORDERED: HYDROCORTISONE10 MG PO (11:10)
[2020-12-23] MEDS ORDERED: ALPRAZOLAM 0.50.5 M1 PO (11:10)
[2020-12-23 11:30] VITALS: BP 115/75
[2020-12-23 16:00] VITALS: BP 116/69
--- NOTE | 2020-12-23 17:38 | NUR ---
PATIENT HAD DIALYSIS THIS MORNING. STABLE THROUGH OUT THE DAY. AMBULATES AROUND ROOM WITH GAIT BELT AND WALKER. SLOW TO RESPOND AT TIMES. AFIB ON THE MONITOR, RATES CONTROLLED. ON ROOM AIR. VOICES ANXIETY THROUGH OUT THE DAY. PATIENT STATES THIS IS NORMAL FOR HER. PRN MEDICATIONS BEING USED. REPORT CALLED TO 5N RN. SON AWARE OF TRANSFER TO REHAB.
--- NOTE | 2021-01-01 13:53 | HC ---
[facility] [place] [address] CONSULTATION Name: MYRNA FRIEDMAN Room #: 215-P [facility] IN M.R.#: [id number] Admission: 12/16/20 Attend Phys: Brandon Busch MD Discharge: 12/23/20 Date of : 53 Report #: [id number] THIS REPORT FOR: cc: Ángel Garduno,Ángel Hein,Giancarlo Coley MD ~ DATE OF SERVICE: 12/23/2020 HISTORY OF PRESENT ILLNESS: This is a 65-year-old -French female with history of shortness of breath, community-acquired pneumonia, COVID negative with acute hypoxic respiratory failure. She has severe pulmonary arterial hypertension. She has atrial fibrillation with rapid ventricular response. She has been closely monitored by pulmonary medicine, internal medicine, nephrology, Geriatrics. She is on nasal prong O2. She has had a significant decline in her overall strength and functional independence. We are seeing her in rehabilitation medicine consultation. Regarding her atrial fibrillation, this is noted to be new onset with rates generally controlled. Cardiology was unable to resume home beta rebecca and she is on amiodarone p.o. and continuing Eliquis. Aspirin was discontinued. She does also have a cardiomyopathy and hypertension. PAST MEDICAL HISTORY: Includes hypertension, diabetes mellitus type 2, gastric bypass, which occurred in 2018 with the loss of 168 pounds. She does have anxiety and is on regular Xanax t.i.d. She has end-stage renal disease and is on hemodialysis. MEDICATIONS: Please see the full medication listing. ALLERGIES: No known drug allergies. SOCIAL HISTORY: She lives in an apartment. No steps with son, who is apparently on house arrest. She was independent with basic ADLs, was driving herself back and forth to dialysis. REVIEW OF SYSTEMS: Somewhat limited as she is rather groggy after taking a recent Xanax and is currently on dialysis. No focal chest pain, shortness of breath or abdominal discomfort. PHYSICAL EXAMINATION: GENERAL: As noted above. Currently undergoing dialysis and is rather sleepy after her most recent Xanax. VITAL SIGNS: Temperature 36.2, pulse 60, respirations 20, blood pressure is 119/79. NEUROLOGIC: She does respond, is able to follow basic 1-step commands. Limited verbalization before drifting back off to sleep. She does have functional range of motion of both upper extremities, strength is a grade 3+ to 4-/5, although it [facility] [address] [place] [address] CONSULTATION Name: MYRNA FRIEDMAN Room #: 215-P DIS IN M.R.#: [id number] Admission: 12/16/20 Attend Phys: Brandon Busch MD Discharge: 12/23/20 Date of : 53 Report #: [id number] was somewhat difficult to grade as she is on dialysis and I did not do full examination. Her lower extremities, she has significant distal edema at least a 2+. The dialysis patient care technician notes, the patient has some complaints of her distal lower extremities and likely has a peripheral neuropathy component, although I was really unable to assess her sensation. Strength is probably a 3+ to 4-/5. Functionally, she is noted to have assistance needs with min assist needed for sit to stand. Gait has been 23 feet min assist with a front-wheeled walker. She is noted to have decreased distal sensation. ASSESSMENT: A 65-year-old -French female with the following problem list: 1. Pulmonary debilitation. 2. Acute hypoxic respiratory failure secondary to community acquired pneumonia. 3. End-stage renal disease, on hemodialysis. 4. Severe pulmonary arterial hypertension. 5. Peripheral neuropathy. 6. Gastric bypass in 2018 with major weight loss, 168 pounds. 7. Hypertension. 8. Diabetes mellitus. PLAN: We would anticipate the patient would be a good [address] inpatient rehabilitation candidate for a short rehabilitation stay to further improve strength, endurance, mobility and ADLs. We can plan on transfer when medically cleared and a bed available if all are in agreement. We will be glad to follow along with you. <ELECTRONICALLY SIGNED> By: Giancarlo Hein MD 01/01/21 1353 [id number] Giancarlo Hein MD /nt
== END 2020-12-23 17:45 | DRG 871 ==
LOC: ER 15:01 → EROBS 21:38 → 2N 21:38
PROVIDERS: Emergency Medicine; Nurse Practitioner Family; ADMIT Internal Medicine; ATTEND Internal Medicine
PROC: 5A1D70Z Performance of Urinary Filtration, Intermittent, Less than 6 Hours Per Day (ICD-10-PCS; principal; 2020-12-18)
PROC: 5A1D70Z Performance of Urinary Filtration, Intermittent, Less than 6 Hours Per Day (ICD-10-PCS; 2020-12-21)
PROC: 5A1D70Z Performance of Urinary Filtration, Intermittent, Less than 6 Hours Per Day (ICD-10-PCS; 2020-12-23)
DX: A41.9 Sepsis, unspecified organism (principal); J18.9 Pneumonia, unspecified organism; N18.6 End stage renal disease; J96.01 Acute respiratory failure with hypoxia; I50.23 Acute on chronic systolic (congestive) heart failure; I13.2 Hypertensive heart and chronic kidney disease with heart failure and with stage 5 chronic kidney disease, or end stage renal disease; I42.9 Cardiomyopathy, unspecified; E87.2 Acidosis; E11.22 Type 2 diabetes mellitus with diabetic chronic kidney disease; F41.9 Anxiety disorder, unspecified; R53.81 Other malaise; I27.21 Secondary pulmonary arterial hypertension; E11.42 Type 2 diabetes mellitus with diabetic polyneuropathy; I25.10 Atherosclerotic heart disease of native coronary artery without angina pectoris; R63.4 Abnormal weight loss; K59.00 Constipation, unspecified; I95.9 Hypotension, unspecified; I08.3 Combined rheumatic disorders of mitral, aortic and tricuspid valves; E11.649 Type 2 diabetes mellitus with hypoglycemia without coma; I48.91 Unspecified atrial fibrillation; Z20.822 Contact with and (suspected) exposure to COVID-19; Z79.01 Long term (current) use of anticoagulants; Z90.49 Acquired absence of other specified parts of digestive tract; Z79.82 Long term (current) use of aspirin; Z79.899 Other long term (current) drug therapy; Z68.30 Body mass index [BMI] 30.0-30.9, adult; Z82.49 Family history of ischemic heart disease and other diseases of the circulatory system; Z84.1 Family history of disorders of kidney and ureter
CPT/HCPCS: 10081; 32100

== ENCOUNTER 2020-12-23 11:32 | Inpatient (IN) | payer OTHER, BC ==
[~2020-12-23] VITALS: Ht 160 cm; Wt 72.1 kg
[~2020-12-23 11:32] MED LIST changes: +ALPRAZOLAM 0.50.5 M1 PO; +ELIQUIS5 MG PO; +HYDROCORTISONE10 MG PO; +IPRAT-ALBUT 0.5-3 ML INH; +MIDODRINE HCL 55 M1 PO; +PACERONE 200 M200 M1 PO
[2020-12-23 17:45] VITALS: BP 109/63
[2020-12-23 20:14] VITALS: BP 92/65
--- NOTE | 2020-12-23 20:21 | NUR ---
ATTEMPTED TO NOTIFY PT'S SISTER MONI OF PT'S NEW ROOM #, BUT SHE DID NOT ANSWER AT THE # ON THE FACE SHEET AND HER PHONE DID NOT ALLOW FOR ANY MESSAGES.
--- NOTE | 2020-12-23 20:28 | NUR ---
PATIENT'S SISTER MONI IS AT A PHONE # THAT IS DIFFERENT FROM THAT ON THE FACE SHEET. HER ACTUAL # IS INT HE ADMISSION ASSESSMENT. SHE HAS BEEN NOTIFIED OF PT'S ADMISSION TO ROOM 513 AND WILL CALL HER IN THE ROOM ONCE PT IS MORE ALERT.
[2020-12-24 03:47] LABS: HEMOGLOBIN 13.9 gm/dL (12.0-15.0); MCH 29.7 pg (26.0-34.0); MCHC 32.2 g/dL (28.0-37.0); MCV 92.1 fL (80.0-100.0); RBC 4.67 mil/uL (4.20-5.00); RDW 19.5 % (10.5-14.5); WBC 5.3 thou/uL (4.0-11.0)
[2020-12-24 03:57] LABS: CREATININE 4.7 mg/dL (0.6-1.0); POTASSIUM 4.1 mmol/L (3.5-5.1)
--- NOTE | 2020-12-24 05:22 | NUR ---
ASSUMED CARE AT 1900 OF 12/23. PATIENT IS A&OX4. DENIES SOB OR PAIN, BUT REPORTS FEELING VERY WEAK. BG AT HS WAS LOW AT 56, PATIENT PROVIDED WITH SNACKS AND RECHECKED, BG INCREASED TO 85. MODERATE ASSIT OF 1 WITH TRANSFER USING GB FROM SIT TO STAND, MINIMUM ASSIST USING WALKER AND GB FOR AMBULATION. PATIENT REQUIRED TO SIT DOWN ON THE WAY TO THE TOILET, BSC OFFERED BUT PATIENT REFUSED. SHE REPORTS FEELING WEAK, BUT DENIES DIZZYNESS. AROUND 0400 PATIENT WOKE UP AND REPORTED FEELING NAUSEOUS, PRN ZOFRAN ODT ADMINISTERED. PATIENT REPORTS FEELING A LITTLE BETTER. FALL PRECAUTIONS IN PLACE, CALL LIGHT WITHIN REACH. WILL CONTINUE TO MONITOR.
--- NOTE | 2020-12-24 07:52 | NUR ---
Chart review. Unable to visit with gisela r/t breakfast and working with therapy. She lives with her son. Independent prior to hospital. Manage own medication. Drives vehicle. Goes to dialysis at [facility], MWF 10 am. Will cont following as needed for dc needs.
--- NOTE | 2020-12-24 12:07 | NUR ---
Consulted r/t pt on renal diet with hx gastic bypass sx 2016. Dx ESRD on HD MWF. Currently with 2+ edema. She reports BM frequency, but no c/o diarrhea. She states her labs and weights are monitored at the dialysis center by the RD and voices no concerns about renal diet. She reports hx gastric bypass 2016 with 163# loss since, no complications noted. She eats smaller meals through out the day r/t limited ability to consume foods d/t bypass. She has good understanding of renal and bypass dietary recommendations. Low nutrition risk at this time.
[2020-12-24 15:09] LABS: FOLIC ACID > 100.0 ng/mL (8.6-58.9)
--- NOTE | 2020-12-24 18:45 | NUR ---
PT SUPPER TIME FSBS WAS ONLY 38, AND PT WAS ALERT AND TOTALLY ASYMPTOMATIC. ASSISTED PT TO DRINK JUICES, AND PT ATE SOME OF HER DINNER, FSBS RECHECKED FREQUENTLY AND ARVIN CHO NP WAS NOTIFIED INITIALLY AND ORDERS FOR PROTOCOL WERE RECEIVED. FSBS INCREASED TO 117, AND PT WAS ADVISED TO TAKE AN HS SNACK BEFORE FALLING ASLEEP TONIGHT. REPORT GIVEN TO ONCOMING RN.
[2020-12-24 19:12] VITALS: BP 101/71
--- NOTE | 2020-12-25 00:23 | NUR ---
PT ALERT AND ORIENTED X 4. BLOOD SUGAR 83 AT HS. PT ATE SNACK OF PEANUT BUTTER AND CRACKERS. BP 101/71 AT START OF SHIFT. PT DENIES PAIN OR DISCOMFORT. BED ALARM ON FOR SAFETY. PT HAS BEEN AWAKE ON HOURLY ROUNDS SO FAR TONIGHT.
[2020-12-25 05:54] VITALS: BP 80/49
[2020-12-25 08:00] VITALS: BP 82/57
--- NOTE | 2020-12-25 09:13 | NUR ---
Received report from LD TEACHER this am that pt's fsbs is low and she "cannot get it up." Noted that she was again in the 40's. Notified Madeleine Overton NP, and gave glucose gel x 2 per protocol. FSBS was up to 86 and updates given to Madeleine Overton and the patient's RN today Renae. Orders received and pt allowed to participate in physical therapy as scheduled. Pt did eat all of her oatmeal with 2 packets of sugar, 1/2 of her eggs, and 1/2 of an Latvian muffin with 2 servings of jelly. Reaching out to stretcher drier operator and to engineering job titles as recommended by Madeleine Overton NP.
[2020-12-25 12:38] LABS: CALCIUM 7.7 mg/dL (8.5-10.1); POTASSIUM 3.8 mmol/L (3.5-5.1)
[2020-12-25 12:39] LABS: CREATININE 5.7 mg/dL (0.6-1.0)
--- NOTE | 2020-12-25 13:20 | NUR ---
Followup: RD reconsulted due to pt having persistant hypoglycemia. Pt reports she has never had this, however low BG readings have been reported all last week. Eating poor to fair at meals 10-50% but does have snacks at bedside. Recommend 6 small meals, limited added sugars but high protein. Pt does not like renal diet-able to liberalize few options which she is happy with. Will obtain calorie count over the weekend to determine how much pt actually eating.
--- NOTE | 2020-12-25 14:51 | NUR ---
I have reviewed the documentation by Monique Martinez from 12/24/20 to 12/25/20 and I concur with it. HEATHER FISHER
[2020-12-25 16:43] VITALS: BP 88/60
--- NOTE | 2020-12-25 16:49 | NUR ---
Assumed patient care at 0700, awake and alert, calm and cooperative, laying in bed, assessment completed, active bowel sound and lungs clear, she ambulate with a walker with unsteady gait, ACHS was stop due to poor circulation, result not accurate, she complained of been weak, blood pressure checked 88/60, Saide was notified and she said is her base line, patient took her medication whole.
[2020-12-25 20:28] VITALS: BP 88/69
--- NOTE | 2020-12-25 23:02 | NUR ---
PT ALERT AND ORIENTED X 4. AMB TO BR WITH WALKER AND ASSIST X 1. WEAK. PT DENIES PAIN OR DISCOMFORT. BED ALARM ON FOR SAFETY. PT AWAKE ON HOURLY ROUNDS SO FAR TONIGHT.
[2020-12-26 06:14] VITALS: BP 70/45
[2020-12-26 08:00] VITALS: BP 130/112
--- NOTE | 2020-12-26 09:39 | NUR ---
PT COMPLAINED OF GAS THIS AM. PT STATED SHE DOESN'T NORMALY DRINK REG MILK, SHE DRINKS LACTATE MILK. PT UP WITH WALKER. PT STATED SHE NEEDS MORE SUGAR TO PUT INTO FOOD DUE TO LOW BLOOD SUGARS. PT HAS EDEMA TO PEDAL AND ANKLES. PT STATED HER FEET ARE PAINFUL. ASKED IF SWELLING IS BETTER AFTER DIALYSIS OR ELEVATING FEET, PT DIDN'T ACKNOWLEDGE IF THE SWELLING WAS BETTER. PT LUNGS CLEAR AND DENIES ANY SOB.
--- NOTE | 2020-12-26 11:15 | NUR ---
THERAPY PLACED LARGE [facility] ON LE DUE TO SWELLING. RT DECKER HAS SOME OOZING SINCE [facility] PLACEMENT. WILL CONT. TO MONITOR.
--- NOTE | 2020-12-26 15:00 | NUR ---
PT WANTED TO HAVE [facility] OFF AT THIS TIME. PT GOING TO HAVE DIALYSIS TODAY. PT STATED THEY ARE TIGHT.
[2020-12-26 19:20] VITALS: BP 114/89
--- NOTE | 2020-12-27 04:44 | NUR ---
assumed care approx 1900 evening 12/26. pt alert and oriented x4, pleasant and cooperative. pt took hs meds and went to sleep until approx 0200. woke up stating she thought she might be having a panic attack. xanax given as ordered and pt now asleep. bed alarm on and call light in reach. will continue to monitor.
[2020-12-27 06:05] VITALS: BP 87/62
[2020-12-27 08:00] VITALS: BP 88/61
[2020-12-27 08:30] VITALS: BP 88/61
--- NOTE | 2020-12-27 15:24 | NUR ---
ASSUMED CARE OF PT AT 0700. PT LETHARGIC POSSIBLY D/T PRN ANXIETY MED GIVEN AT HS. VS CHARTED. WILL CONTNIUE TO MONITOR.
[2020-12-27 19:30] VITALS: BP 87/63
[2020-12-27 21:26] VITALS: BP 83/55
--- NOTE | 2020-12-28 01:15 | NUR ---
assumed care approx 1900 evening 12/27. pt dozing in bed off and on at change of shift. pt somewhat drowsy yet awoke to take hs meds with no problems. pt up to bathroom to have 2 bms so far this night. pt now back to bed. call light in reach and bed monitor on. will continue to monitor.
[2020-12-28 06:01] VITALS: BP 91/69
[2020-12-28 07:15] VITALS: BP 97/61
[2020-12-28 08:11] LABS: C-PEPTIDE 8.2 ng/mL (1.1-4.4); INSULIN 3.2 uIU/mL (2.6-24.9)
[2020-12-28 08:15] VITALS: BP 97/61
--- NOTE | 2020-12-28 09:55 | PLAN ---
[facility] [place] [address] REHAB UNIT PLAN OF CARE Name: MYRNA FRIEDMAN Room #: 509-P ADM IN M.R.#: [id number] Admission: 12/23/20 Attend Phys: Giancarlo Hein MD Discharge: Date of : 53 Report #: [id number] THIS REPORT FOR: cc: Ángel Garduno,Ángel Hein,Giancarlo Coley MD ~ DATE OF SERVICE: 12/26/2020 PROGRESS NOTE AND OVERALL PLAN OF CARE HISTORY OF PRESENT ILLNESS: The patient was seen in followup yesterday. She was in no distress. Temperature 34.7, pulse 59, respirations 18, blood pressure 88/69. She was pleasant, alert. No focal calf swelling. She has been working in therapies with transfers at a min assist level and is ambulating 100 feet min assist with a front-wheeled walker. She is working in occupational therapy with upper body dressing setup, lower body dressing with min assist. Speech therapy is also seeing her with mild to moderate cognitive deficits and severe memory deficits. She has been cooperative with her therapy program. Nephrology is following as well as Internal Medicine and Cardiology. She does have a new onset atrial fibrillation noted to be rate controlled and cardiomyopathy. ASSESSMENT: 1. Medical complication with generalized debilitation. 2. Acute hypoxic respiratory failure secondary to community-acquired pneumonia. 3. Pulmonary rehabilitation secondary to the above. 4. End-stage renal disease, on hemodialysis. 5. Severe pulmonary hypertension. 6. Premorbid peripheral neuropathy. 7. Hypertension. 8. Atrial fibrillation, now rate controlled, on anticoagulation. 9. History of gastric bypass in 2018. PLAN: The overall plan of care is based on the pre-admit screen and information garnered from therapy assessments. 1. Estimated length of stay is probably around 10 days. 2. Medical prognosis is reasonably good. 3. Anticipated interventions includes the interdisciplinary acute inpatient rehabilitation program. 4. Anticipated functional outcomes would be for the patient to become modified independent with transfers, mobility and ADLs and improvement with cognition, so that she will hopefully return back to her home setting. 5. Discharge destination would be back home where she lives with her adult son. 6. Expected therapy by discipline includes PT, OT and speech 1 hour per day [address] [address] REHAB UNIT PLAN OF CARE Name: SHARMIN FRIEDMANN ANTOLIN Room #: 509-P [facility].#: [id number] Admission: 12/23/20 Attend Phys: Giancarlo Hein MD Discharge: Date of : 53 Report #: [id number] each 5 days a week throughout the duration of the acute inpatient rehabilitation stay. ADDENDUM: The patient's prognosis for significant practical improvement within a reasonable period of time appears good. Given the patient's complex medical condition and risk of further medical complication, rehabilitation services could not be safely provided at a lower level of care such as a retirement facility. <ELECTRONICALLY SIGNED> By: Giancarlo Hein MD 12/28/20 0955 [id number] Giancarlo Hein MD /nt
[2020-12-28 13:08] LABS: CORTISOL 30 MIN 21.4 ug/dL (Not Estab.); CORTISOL 60 MIN 23.2 ug/dL (Not Estab.)
--- NOTE | 2020-12-28 13:32 | NUR ---
Followup: only 1 menu saved for calorie count and pt reports eating "fine". Renal has ordered C-peptide test which was elevated 8.2 (1.1-1.4 normal) and insulin levels were wnl. RN reports accuchecks may not be accurate for pt due to circulatory issues as fingerstick showed 38 but blood draw was 96. Pt not experiencing low BG symptoms. Pt continues to keep peanut butter and snacks at bedside and aware to eat 6 small meals. Calorie count discontinued.
[2020-12-28 19:45] VITALS: BP 84/63
--- NOTE | 2020-12-29 00:15 | NUR ---
ASSUMED CARE OF PT ON 12/28/20 AT 1930. PT IS A&OX4. IS ON ROOM AIR. DENIES PAIN. IS STABLE. DAVID WRAPS TO BILAT LE C/D/I. EDEMA NOTED. IS UP WITH STANDBY ASSIST, GB, WALKER. FALL PRECAUTIONS & HOURLY ROUDNING CONTINUED THIS SHIFT. PT CONTINUES TO HAVE LOW BP & IS ON MIDODRINE. LABS & VTIALS REVIWED. CALL LIGHT WITHIN REACH. PT HAS L WRIST FISTULA FOR DIALYSIS. WILL CONTINUE TO MONITOR.
[2020-12-29 07:50] VITALS: BP 89/64
[2020-12-29 08:29] LABS: CORTISOL BASELINE 14.7
--- NOTE | 2020-12-29 13:58 | NUR ---
Team meeting, recommendation: cont. dialysis on acute rehab today and Monday for swelling . Goes to [facility] normally. mod to sever cognitive and memory deficits. dc 01/05 with [facility] ( pt, ot, st, nursing). No driving till cleared by PCP. See if sister can lift driver her to dialysis [facility] 10am. BPCI.
--- NOTE | 2020-12-29 17:55 | NUR ---
Assumed pt care at 0700. pt is alert and oriented x4. Calm and cooperative with care. Took meds whole, no difficulty noted. Denies pain at this time. Vital sign stable, edema noted upon assessment. Pt is on room air. up with standy by assist. Pt is a high fall risk. Fall precaution in place. pt continues to have low blood pressure, Midodrine administered as scheduled. Call light with reach. At this time pt is receiving dialysis. Will continue to monitor.
[2020-12-29 19:06] VITALS: BP 89/68
--- NOTE | 2020-12-30 00:03 | NUR ---
PT ALERT AND ORIENTED X 4. AMB TO BR WITH WALKER AND ASSIST X 1 WITHOUT DIFFICULTY. LYMPHEDEMA WRAPS INTACT TO BILAT LE'S. PT FINISHED DIALYSIS IN EVENING. NURSE REPORTED SHE TOOK 1.5 LITERS OFF. PT DENIES PAIN OR DISCOMFORT. XANAX GIVEN AT HS PER PT REQUEST FOR SLEEP. PT HAS BEEN AWAKE ON HOURLY ROUNDS SO FAR TONIGHT. BED ALARM ON FOR SAFETY. PT CHECKED ON HOURLY ROUNDS.
[2020-12-30 03:16] LABS: EOSINOPHILS 1.1 % (0.0-3.0); HEMATOCRIT 37.6 % (37.0-47.0); HEMOGLOBIN 12.2 gm/dL (12.0-15.0); LYMPHOCYTES 13.7 % (24.0-44.0); MCH 30.1 pg (26.0-34.0); MCHC 32.5 g/dL (28.0-37.0); MCV 92.6 fL (80.0-100.0); MONOCYTES 6.4 % (1.0-8.0); PLATELET COUNT 144 thou/uL (150-400); POLYS 77.8 % (36.0-66.0); RBC 4.06 mil/uL (4.20-5.00); RDW 18.4 % (10.5-14.5); WBC 6.4 thou/uL (4.0-11.0)
[2020-12-30 03:45] LABS: ALBUMIN 3.5 g/dL (3.4-5.0); CALCIUM 6.8 mg/dL (8.5-10.1); CREATININE 5.4 mg/dL (0.6-1.0); MAGNESIUM 2.4 mg/dL (1.8-2.4); PHOSPHORUS 4.9 mg/dL (2.5-4.9); POTASSIUM 3.8 mmol/L (3.5-5.1)
[2020-12-30 04:58] VITALS: BP 88/66
[2020-12-30 07:15] VITALS: BP 97/66
[2020-12-30 07:45] VITALS: BP 97/66
--- NOTE | 2020-12-30 10:36 | NUR ---
ASSUMED CARE OF PATIENT AT 0700. PT A&OX4. PT UP WITH SBA WITH WALKER AND GAIT BELT. PT WILL HAVE DIALYSIS TODAY. PT STATES HER FEET FEEL A LOT BETTER AND THAT THE SWELLING HAS GONE DOWN. WILL CONTINUE TO MONITOR.
--- NOTE | 2020-12-30 12:00 | NUR ---
Cm visited with Pattie's sister Sonja via phone call, passed on information from team meeting yesterday. She agrees with dcp. Cm education on list [facility] choice, no driving and assist with medication and finances. Sonja going to help with medication, might need to work on dpoa for medical and finances, I have dpoa for my other siblings who havee dementia and our mom had that also. Snow with [facility] is working on setting up her transportation for dialysis. Her son lives with her and can remind her about medication but cannot drive her per Alex. Will cont. following as needed for dc needs.
[2020-12-30 19:43] VITALS: BP 91/64
--- NOTE | 2020-12-30 21:03 | NUR ---
ASSUMED CARE OF PT AT 1900. PT IS A&OX4. IS ON ROOM AIR. DENIES PAIN. IS STABLE. IS UP WITH STANDBY ASSIST, GB, WALKER. FALL PRECAUTIONS & HOURLY ROUNDING CONTINUED THIS SHIFT. PT IS CURRENTLY IN BED RELAXING WATCHING TV. CALL LIGHT WITHIN REACH. PT HAS DIALYSIS FISTULA IN LEFT FA COVERED. IS ABLE TO TURN SELF IN BED. BILAT LE LYMP WRAPS IN PLACE. CALL LIGHT WITHIN REACH. WILL CONTINUE TO MONITOR.
--- NOTE | 2020-12-31 07:06 | NUR ---
I have reviewed the documentation by Monique Martinez from 12/28/20 to 12/28/20 and I concur with it. HEATHER FISHER
[2020-12-31 08:00] VITALS: BP 103/70
[2020-12-31 09:15] VITALS: BP 103/70
--- NOTE | 2020-12-31 11:42 | NUR ---
referral for located within [facility] sent today. will follow up to see if they can accept for [facility] needs [place].
--- NOTE | 2020-12-31 15:40 | NUR ---
FAXED CLINICAL UPDATES, NEGATIVE COVID RESULT (12/23/20) AND FLOW SHEETS TO [facility]. CONFIRMED WITH SOFÍA AT [facility] THAT THEY RECEIVED. [facility] P [phone]; FAX [phone]
--- NOTE | 2021-01-01 02:41 | NUR ---
PT ASSESSMENT COMPLETED AND VSS. MEDS GIVEN ORDERED AND WELL TOLERATED. FALL PRECAUTIONS IN PLACE. UP TO THE BATHROOM WITH ASST/GAIT/WALKER. STEADY. SLEEP AND ANXIETY MEDICATION HELPFUL. PT DENIES NEEDS. DIALYSIS ACCESS WNL. SLEEPING WELL. WILL CONTINUE TO MONITOR FREQUENTLY.
[2021-01-01 08:00] VITALS: BP 95/64
--- NOTE | 2021-01-01 11:34 | NUR ---
1134 ASSUMED CARE OF PT FROM OVERNIGHT NURSE. PT SITTING UP IN BED AT TIIME OF ASSESSMENT. PT TOOK MEDICATIONS WHOLE W SMALL AMOUNT OF WATER. PT LUNGS CLEAR. PT IN PLEASANT MOOD. PT ALERT AND ORIENTED TIMES 3. PT HAS LEFT FOREARM DIALYSIS ACCESS. PT DENIES PAIN AT THIS TIME. WILL CONT TO ASSESS PT FOR NEEDS AND SAFETY.
--- NOTE | 2021-01-01 11:53 | NUR ---
[facility] is able to accept for [facility] needs at [place], will cont following as needed.
--- NOTE | 2021-01-01 18:08 | NUR ---
1808 pt c/o indigestion. prn Tums given w some relief.
[2021-01-01 18:50] VITALS: BP 91/58
--- NOTE | 2021-01-02 02:40 | NUR ---
patient aox4 makes needs known.patient needs stand by assist with adl, bed mobility, transfer and toileting. patient had anxiety attack prn given. fall precaution in place. patient in bed asleep at this time breathing regular and unlaboured.
[2021-01-02 04:56] VITALS: BP 79/57
[2021-01-02 07:41] VITALS: BP 86/61
--- NOTE | 2021-01-02 07:55 | NUR ---
PT SITTING IN CHAIR AND WANTING TO GET A SHOWER THIS AM BEFORE BREAKFAST TRAYS COME. PT DIDN'T HAVE THERAPY UNTIL 1100 TODAY. TOLD PT SHE CAN REQUEST TO HAVE OT EARILER. APPROACHED OT AND ASKED ABOUT SHOWER THIS AM, SHE STATED THAT STAFF CAN BE WITH HER TO ASSIST WITH SHOWER THIS AM.
--- NOTE | 2021-01-02 08:30 | NUR ---
PT DID GET TO SHOWER WITH STAFF OUTSIDE BATHROOM. PT LUNGS CLEAR. PT VERY APPRECIATED OF DR. ZAVALA OF GETTING HER SWELLING UNDER CONTROL TO LOWER EXT. PT DENIES ANY PAIN TO LE.
--- NOTE | 2021-01-02 09:15 | NUR ---
PT WALKING AROUND UNIT AND WANTED TO DO HER LAUNDRY. PT HAS HER CLOTHES IN A SACK HANING OFF HER WALKER. DOOR WAS LOCKED TO LAUNDRY AT THIS TIME. PT FEELING ALOT BETTER AND GETTING AROUND WITHOUT ANY ISSUES.
--- NOTE | 2021-01-02 13:28 | NUR ---
DIALYSIS NURSE HERE TO START WORKING WITH PT.
--- NOTE | 2021-01-02 17:48 | HC ---
[facility] [place] [address] CONSULTATION Name: MYRNA FRIEDMAN Room #: 509-P ADM IN M.R.#: [id number] Admission: 12/23/20 Attend Phys: Giancarlo Hein MD Discharge: Date of : 53 Report #: [id number] THIS REPORT FOR: cc: Ángel Garduno Andrea RNP Deutch,Sean Muniz PhD ~ DATE OF SERVICE: 12/27/2020 NEUROBEHAVIORAL STATUS EXAM ATTENDING PHYSICIAN: Giancarlo Hein MD ACCIDENT REPORT CLERK: Sean Downing, PhD CLINICAL PRESENTATION: The patient is a 65-year-old female admitted to the [facility] unit for a comprehensive inpatient program. She was admitted to rehab after a hospital stay for acute hypoxic respiratory failure. The patient carries a medical problem list that includes AFib, anemia, anxiety, cardiomyopathy, chest pain, dyspnea, end-stage renal disease on dialysis, gastroenteritis, leukocytosis, mitral regurgitation, pleural effusion and pneumonia. Her assessment on admission to the rehabilitation unit was medical complexity with generalized debility, acute hypoxic respiratory failure, pulmonary rehabilitation secondary to CAP and respiratory failure; ESRD, on HD; severe pulmonary hypertension with executive ejection fraction of 30-35%; premorbid peripheral neuropathy; hypertension; AFib control, on anticoagulation and a history of gastric bypass in 2018. A complete description of her medical condition and history can be found in her medical record. Neuropsychological consultation was requested to provide assistance in the assessment of cognitive and emotional status and provide recommendations and services. Prior to this most recent admission, she was living with her son at his home. She reports having a gastric bypass surgery in 2016 and having achieved a 163 pound weight loss. She is with two children. Her family of origin included 10 brothers and sisters. 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 Sadness is reported regarding the recent loss of her younger brother which was about 4 weeks ago. She indicates having been independent with basic and instrumental activities of daily living including driving prior to this most recent admission. TECHNIQUES UTILIZED: Clinical interview, review of medical records, staff consultation and behavioral observation, mini mental status exam 2 standard version and clock drawing and brief verbal fluency assessment and exception in examination findings. [facility] [address] [place] [address] CONSULTATION Name: MYRNA FRIEDMAN Room #: 509-P [facility] [place] ..#: [id number] Admission: 12/23/20 Attend Phys: Giancarlo Hein MD Discharge: Date of : 53 Report #: [id number] EXAMINATION FINDINGS: The patient was alert and cooperative with the assessment. She was vague in regard to the reason for her hospitalization and does not report having any problems. Her primary concerns are low blood sugar and blood pressure. She does not report difficulty with sleep, appetite, depression or memory. Variability in word finding and anxiety are described. The patient is not presenting with auditory or visual hallucinations. There is no suicidal ideation. Performance on the MMSE 2 brief version was extremely low with a raw score of 11 and 16. She was 3/3 for initial registration, 3/5 for orientation to time, 5/[address] and 0/3 for immediate recall of 3 items after a brief time delay and distraction. Performance on the MMSE 2 standard version is extremely low with a raw score OF 21 of 30. She was 2/5 for serial sevens, 2/2 for naming, 1/1 for repetition, 3/3 for comprehension. She could read and follow a single command and write a sentence. The patient had difficulty copying a simple geometric design. The patient was unable to accurately draw a clock with a hand placement. Brief category fluency was in the borderline range with a T score of 33 and percentile rank of 4. Brief letter fluency was in the borderline range with a T score of 30 and percentile rank at 2. The patient is presenting with impairment in immediate recall, sustained concentration, visual spatial construction and executive functioning. DIAGNOSTIC IMPRESSION: Neurocognitive disorder -- extent to be determined, likely in the moderate range. Unspecified anxiety disorder. RECOMMENDATIONS: The patient should discontinue driving prior to a more thorough neuropsychological assessment. Followup neuropsych assessment could be of benefit to clarify the severity of cognitive deficits. Her current level of functioning suggests cognitive impairment that will very likely intefere with instrumental activities of daily living. Assistance is recommended with medical and financial decision making, management of medication and nutrition. Speech therapy will be helpful in developement of compensatory strategies. Her son will require educational information regarding her medical condition and assistance that is necessary for her to maintain safety. [address] [address] CONSULTATION Name: MYRNA FRIEDMAN Room #: 509-P [facility] [place] ..#: [id number] Admission: 12/23/20 Attend Phys: Giancarlo Hein MD Discharge: Date of : 53 Report #: [id number] Thank you very much for allowing me to provide the consultation on this patient. <ELECTRONICALLY SIGNED> By: Sean Downing, PhD 01/02/21 [id number] Sean Downing, PhD /nt
--- NOTE | 2021-01-02 19:05 | NUR ---
ADM TUMS 1500MG PER REQUEST PT STATED SHE STOPPED PEANUT BUTTER AND GRAHM CRACKERS MADE HER STOMACH UPSET.
[2021-01-02 19:30] VITALS: BP 91/60
--- NOTE | 2021-01-03 00:06 | NUR ---
PT ALERT AND ORIENTED X 4. AMB TO BR WITH WALKER AND ASSIST X 1 WITHOUT DIFFICULTY. PT DENIES PAIN OR DISCOMFORT. XANAX GIVEN AT HS PER PT REQUEST FOR ANXIETY. BED ALARM ON FOR SAFETY. PT APPEARS TO BE SLEEPING ON HOURLY ROUNDS.
[2021-01-03 06:04] VITALS: BP 100/65
[2021-01-03 07:15] VITALS: BP 104/68
[2021-01-03 07:30] VITALS: BP 104/68
--- NOTE | 2021-01-03 18:11 | NUR ---
ASSUMED CARE OF PT AT 0700. PT A&OX4. PT UP WITH SBA. WILL CONTINUE TO MONITOR.
[2021-01-03 19:00] VITALS: BP 110/60
[2021-01-04 06:07] VITALS: BP 89/56
[2021-01-04 08:15] VITALS: BP 88/62
[2021-01-04 09:06] VITALS: BP 88/62
--- NOTE | 2021-01-04 13:22 | NUR ---
Nutrition followup: Pt eating on average 70% of meals on renal diet. Aware of need for 6 small meals/day, keeps snacks at bedside. Vitamin D level 15.1, on supplements. Also Ca+, MVI, No recent BG draws to eval. BM 01/04. Possible 5# weight decline in 2 weeks. On hemodialysis today. Follow trends however pt anticipated to D/C tomorrow 01/05.
--- NOTE | 2021-01-04 13:52 | NUR ---
ASSUMED CARE OF PT AT 0700. PT A&OX4. PT IS PLEASNT. PT FEET ARE MORE EDMATOUS TODAY THAN YESTERDAY. PT UP WITH SBA. PT HAS LYMPHDEMA WRAPS ON, EDUCATED PT ABOUT KEEPING THEM ON. PT WILL HAVE DIALYSIS TODAY. WILL CONTINUE TO MONITOR.
[2021-01-04 19:26] VITALS: BP 90/54
--- NOTE | 2021-01-04 22:45 | NUR ---
ASSUMED CARE OF PT AT 1900. PT IS A&OX4. IS ON ROOM AIR. DENIES PAIN. IS ON ROOM AIR. IS STABLE. IS UP MOD I IN ROOM WITH WALKER. HOURLY ROUNDING CONTINUED THIS SHIFT. PT IS ABLE TO TURN SELF IN BED. TEDS OFF. LYMPH WRAPS TO BILAT LE. PT CONTINUES WITH HEMODIALYSIS. LFA FISTULA NOT COVERED. THRILL PALPATED. BRUIT AUSCULTATED. PT SELF MONITORS FLUID INTAKE. IS OLIGURIC. PT REPORTED HAVING MULTIPLE BMS THAT STARTED WHILE HERE AT HOSPITAL. REQUESTED XANAX. IS CURRENTLY ASLEEP. CALL LIGHT WITHIN REACH. IS SCHEDULED TO DC TOMORROW. WILL [facility].
[2021-01-05 05:29] LABS: ABSOLUTE NEUTROPHILS 4.5 thou/uL (1.4-8.2); BASOPHILS 2.2 % (0.0-2.0); EOSINOPHILS 1.7 % (0.0-3.0); HEMATOCRIT 37.3 % (37.0-47.0); HEMOGLOBIN 11.9 gm/dL (12.0-15.0); LYMPHOCYTES 13.7 % (24.0-44.0); MCH 29.9 pg (26.0-34.0); MCHC 31.9 g/dL (28.0-37.0); MCV 93.6 fL (80.0-100.0); MONOCYTES 11.1 % (1.0-8.0); PLATELET COUNT 140 thou/uL (150-400); POLYS 71.3 % (36.0-66.0); RBC 3.99 mil/uL (4.20-5.00); RDW 19.9 % (10.5-14.5); WBC 6.4 thou/uL (4.0-11.0)
[2021-01-05 05:42] LABS: ALBUMIN 3.3 g/dL (3.4-5.0); CALCIUM 7.5 mg/dL (8.5-10.1); CREATININE 6.6 mg/dL (0.6-1.0); MAGNESIUM 2.3 mg/dL (1.8-2.4); PHOSPHORUS 6.5 mg/dL (2.6-4.7); POTASSIUM 3.3 mmol/L (3.5-5.1)
[2021-01-05 07:15] VITALS: BP 98/79
[2021-01-05 07:46] VITALS: BP 90/54
[2021-01-05 09:34] VITALS: BP 90/54
[2021-01-05] MEDS ORDERED: TYLENOL325 MG PO (10:53)
[2021-01-05] MEDS ORDERED: CARVEDILOL3.125 MG PO (10:53)
[2021-01-05] MEDS ORDERED: PACERONE 200 M200 M1 PO (10:55)
[2021-01-05] MEDS ORDERED: MIDODRINE HCL 55 M1 PO (10:55)
[2021-01-05] MEDS ORDERED: ELIQUIS5 MG PO (10:55)
--- NOTE | 2021-01-05 12:53 | NUR ---
team meeting, cont. with dc home today after dialysis, she will need dialysis today at [facility]. No driving, family to assist with bills and pills. Alexx woo ( pt, ot, st, nursing). poor insight and memory. wants [facility]ww.
--- NOTE | 2021-01-05 19:21 | NUR ---
DISCHARGE INSTRUCTIUONS REVIEWED WITH PT AND SISTER JAMILAH GRACE DISCHARGE MEDICATIONS,DIALYSIS SCHEDULE,F/U APPOINTMENTS-PT AND SISTER REPORT UNDERSTQNDING AND DENY QUESTIONS CONCERNS. DISCHARGED VIA WC ACCOMNIED BY NURSING STAFF AT [facility] 1645 TO [facility] PRIVATE VEHICLE. DENIES COMPLAINTS AT TIME OF DC
== END 2021-01-05 18:37 | disposition home health service (06) | DRG 947 ==
PROVIDERS: Hospitalist; Nurse Practitioner; Nurse Practitioner Family; ADMIT Physical Medicine & Rehabilitation; ATTEND Physical Medicine & Rehabilitation
PROC: 5A1D70Z Performance of Urinary Filtration, Intermittent, Less than 6 Hours Per Day (ICD-10-PCS; principal; 2020-12-25)
PROC: 5A1D70Z Performance of Urinary Filtration, Intermittent, Less than 6 Hours Per Day (ICD-10-PCS; 2020-12-26)
PROC: 5A1D70Z Performance of Urinary Filtration, Intermittent, Less than 6 Hours Per Day (ICD-10-PCS; 2020-12-29)
PROC: 5A1D70Z Performance of Urinary Filtration, Intermittent, Less than 6 Hours Per Day (ICD-10-PCS; 2020-12-30)
PROC: 5A1D70Z Performance of Urinary Filtration, Intermittent, Less than 6 Hours Per Day (ICD-10-PCS; 2020-12-31)
PROC: 5A1D70Z Performance of Urinary Filtration, Intermittent, Less than 6 Hours Per Day (ICD-10-PCS; 2021-01-01)
PROC: 5A1D70Z Performance of Urinary Filtration, Intermittent, Less than 6 Hours Per Day (ICD-10-PCS; 2021-01-02)
PROC: 5A1D70Z Performance of Urinary Filtration, Intermittent, Less than 6 Hours Per Day (ICD-10-PCS; 2021-01-05)
DX: R53.81 Other malaise (principal); J96.01 Acute respiratory failure with hypoxia; J18.9 Pneumonia, unspecified organism; N18.6 End stage renal disease; E43 Unspecified severe protein-calorie malnutrition; I12.0 Hypertensive chronic kidney disease with stage 5 chronic kidney disease or end stage renal disease; I42.9 Cardiomyopathy, unspecified; I27.21 Secondary pulmonary arterial hypertension; I95.9 Hypotension, unspecified; I48.91 Unspecified atrial fibrillation; R41.9 Unspecified symptoms and signs involving cognitive functions and awareness; F41.9 Anxiety disorder, unspecified; E11.22 Type 2 diabetes mellitus with diabetic chronic kidney disease; E11.649 Type 2 diabetes mellitus with hypoglycemia without coma; E11.42 Type 2 diabetes mellitus with diabetic polyneuropathy; I25.10 Atherosclerotic heart disease of native coronary artery without angina pectoris; R63.4 Abnormal weight loss; K59.00 Constipation, unspecified; E55.9 Vitamin D deficiency, unspecified; M79.671 Pain in right foot; Z98.84 Bariatric surgery status; Z79.82 Long term (current) use of aspirin; Z79.899 Other long term (current) drug therapy; Z90.49 Acquired absence of other specified parts of digestive tract; Z68.28 Body mass index [BMI] 28.0-28.9, adult
CPT/HCPCS: 10112; 32100

== ENCOUNTER 2021-02-20 19:37 | Emergency (ER) | payer OTHER, BC ==
[~2021-02-20] VITALS: Ht 160 cm; Wt 67.1 kg
[~2021-02-20 19:37] MED LIST changes: +CARVEDILOL3.125 MG PO; +TYLENOL325 MG PO
[2021-02-20] MEDS ORDERED: CLONAZEPAM 1 MG1 M1 PO (20:44)
[2021-02-20 20:53] VITALS: BP 95/76
== END 2021-02-20 20:53 | disposition home or self-care (01) ==
LOC: ER 19:37
DX: F41.9 Anxiety disorder, unspecified (principal); I12.0 Hypertensive chronic kidney disease with stage 5 chronic kidney disease or end stage renal disease; E11.22 Type 2 diabetes mellitus with diabetic chronic kidney disease; N18.6 End stage renal disease; Z76.0 Encounter for issue of repeat prescription; Z99.2 Dependence on renal dialysis; Z90.49 Acquired absence of other specified parts of digestive tract; Z79.891 Long term (current) use of opiate analgesic; Z79.899 Other long term (current) drug therapy

== ENCOUNTER → 2021-03-09 | Outpatient (CLI) | payer OTHER, BC ==
[~2021-03-09] MED LIST changes: +CLONAZEPAM 1 MG1 M1 PO
== END ==
LOC: SJCVC 13:35
PROVIDERS: ATTEND Internal Medicine Cardiovascular Disease
DX: R94.31 Abnormal electrocardiogram [ECG] [EKG] (principal); I49.3 Ventricular premature depolarization; I44.0 Atrioventricular block, first degree; I13.11 Hypertensive heart and chronic kidney disease without heart failure, with stage 5 chronic kidney disease, or end stage renal disease; E11.22 Type 2 diabetes mellitus with diabetic chronic kidney disease; N18.6 End stage renal disease; I42.9 Cardiomyopathy, unspecified; I25.10 Atherosclerotic heart disease of native coronary artery without angina pectoris; I48.0 Paroxysmal atrial fibrillation; I95.9 Hypotension, unspecified; E78.5 Hyperlipidemia, unspecified; E66.9 Obesity, unspecified; Z79.899 Other long term (current) drug therapy